=== PATIENT | female | born 1960 | race Caucasian/White ===

== ENCOUNTER 2017-11-11 09:48 | Emergency (ER) | payer BC ==
--- NOTE | 2017-11-11 10:16 | EDM.PDOC ---
ED HPI GENERAL MEDICAL PROBLEM - General Chief Complaint: Chest Pain Stated Complaint: chest pain Time Seen by Provider: 11/11/17 09:48 Source of Information: Reports: Patient History Limitations: Reports: No Limitations - History of Present Illness INITIAL COMMENTS - FREE TEXT/NARRATIVE: 56 years old w f with a h/o ETOH dependency, came with her SO the ED because of CP at her ant C/W with deep inspiration. No Trauma, neg H/O CAD. Last ETOH intake last night. Was never at an ETOH Tx center and is not interested currently to stop drinking. ECG showed NSR BP 157/83 Pulse 83 RR 17 Temp 36.5 pulse ox 100% on RA Onset Date: 11/11/17 Onset Time: 07:00 Duration: Hour(s): Location: Reports: Chest Quality: Reports: Burning, Dull Severity: Mild Improves with: Reports: Rest Worsens with: Reports: Movement Context: Reports: Other (ETOH last night. ) Associated Symptoms: Reports: Other (tremor/ETOH withdrawel ) - Related Data Allergies Allergy/AdvReac Type Severity Reaction Status Date / Time nitrofurantoin Allergy Swelling Verified 11/11/17 10:03 [From Macrobid] Home Meds: Home Meds Aspirin 81 mg PO DAILY 11/11/17 [History] Lisinopril 5 mg PO DAILY 11/11/17 [History] Ondansetron [Zofran ODT] 4 mg PO Q6H PRN #10 tab.dis 11/11/17 [Rx] ED ROS GENERAL - Review of Systems Review Of Systems: See Below Constitutional: Reports: No Symptoms HEENT: Reports: No Symptoms Respiratory: Reports: No Symptoms Cardiovascular: Reports: No Symptoms Endocrine: Reports: No Symptoms GI/Abdominal: Reports: Abdominal Pain (epigastric) : Reports: No Symptoms Musculoskeletal: Reports: No Symptoms Skin: Reports: No Symptoms Neurological: Reports: Other (tremor, last ETOH was last night) Psychiatric: Reports: Anxiety (ETOH withdrawel symptoms) Hematologic/Lymphatic: Reports: No Symptoms Immunologic: Reports: No Symptoms ED EXAM, GENERAL - Physical Exam Exam: See Below Exam Limited By: No Limitations General Appearance: Alert, WD/WN, Mild Distress Eye Exam: Bilateral Eye: Normal Inspection Ears: Normal External Exam Ear Exam: Bilateral Ear: Auricle Normal Nose: Normal Inspection Throat/Mouth: Normal Inspection Head: Atraumatic, Normocephalic Neck: Normal Inspection, Supple Respiratory/Chest: No Respiratory Distress, Lungs Clear, Normal Breath Sounds Cardiovascular: Normal Peripheral Pulses, Regular Rate, Rhythm, No Edema, No Gallop Peripheral Pulses: 1+: Radial (R) GI/Abdominal: Tender (epigastric) (Female) Exam: Deferred Rectal (Female) Exam: Deferred Back Exam: Normal Inspection Extremities: Normal Inspection, Normal Range of Motion, Non-Tender Neurological: Alert, Oriented, CN II-XII Intact, Normal Cognition, Normal Gait Psychiatric: Anxious (last ETOH intake last night) Skin Exam: Warm, Dry, Intact, Normal Color, No Rash Lymphatic: No Adenopathy EKG INTERPRETATION EKG Date: 11/11/17 Time: 10:15 Rhythm: NSR Rate (Beats/Min): 81 Morris: Normal P-Wave: Present QRS: Normal ST-T: Normal QT: Normal Comparison: NA - No Prior EKG Course - Vital Signs Text/Narrative:: 56 years old w f with a h/o ETOH dependency, came with her SO the ED because of CP at her ant C/W with deep inspiration. No Trauma, neg H/O CAD. Last ETOH intake last night. Was never at an ETOH Tx center and is not interested currently to stop drinking. ECG showed NSR BP 157/83 Pulse 83 RR 17 Temp 36.5 pulse ox 100% on RA PE: Ant C/W pain, epigastric pain Lab: CBC, BMP and trop neg Impression: Pleurisy, ETOH dependence. Tremor form ETOH withdrawel. Tx: Ativan, Zofran.Maalox Reexam: Improved Plan: D/C with instructions Last Recorded V/S: Last Vital Signs Temp 36.9 C 11/11/17 12:10 Pulse 75 11/11/17 12:10 Resp 15 11/11/17 12:10 BP 118/74 11/11/17 12:10 Pulse Ox 100 11/11/17 12:10 - Orders/Labs/Meds Orders: Active Orders 24 hr Category Date Time Status Chest 1V Frontal [CR] Stat Exams 11/11/17 10:23 Taken Peripheral IV Insertion Adult [OM.PC] Routine Oth 11/11/17 10:29 Ordered EKG 12 Lead [EK] Routine Ther 11/11/17 10:13 Ordered Labs: Laboratory Tests 11/11/17 11/11/1711/11/17 Range/Units 10:35 10:35 10:35 WBC 6.9 (4.5-12.0) X10-3/uL RBC 4.50 (3.23-5.20) x10(6)uL Hgb 13.6 (11.5-15.5) g/dL Hct 40.2 (30.0-51.3) % MCV 89.4 (80-96) fL MCH 30.3 (27.7-33.6) pg MCHC 33.9 (32.2-35.4) g/dL RDW 12.4 (11.5-15.5) % Plt Count 344 (125-369) X10(3)uL MPV 7.3 L (7.4-10.4) fL Neut % (Auto) 53.6 (46-82) % Lymph % (Auto) 32.8 (13-37) % [place] % (Auto) 10.0 (4-12) % Eos % (Auto) 2 (1.0-5.0) % Baso % (Auto) 2 (0-2) % Neut # (Auto) 3.8 (1.6-8.3) # Lymph # (Auto) 2.2 (0.6-5.0) # [place] # (Auto) 0.7 (0.0-1.3) # Eos # (Auto) 0.1 (0.0-0.8) # Baso # (Auto) 0.1 (0.0-0.2) # Sodium 139 (135-145) mmol/L Potassium 4.0 (3.5-5.3) mmol/L Chloride 101 (100-110) mmol/L Carbon Dioxide 24 (21-32) mmol/L BUN 11 (7-18) mg/dL Creatinine 0.7 (0.55-1.02) mg/dL Est Cr Clr Drug Dosing 64.46 mL/min Estimated GFR (MDRD) > 60 (>60) BUN/Creatinine Ratio 15.7 (9-20) Glucose 99 (80-116) mg/dL Calcium 9.6 (8.6-10.2) mg/dL Troponin I < 0.017 L (<0.017-0.056) ng/mL Urine Color (YELLOW) Urine Appearance (CLEAR) Urine pH (5.0-6.5) Ur Specific [place] (1.010-1.025) Urine Protein (NEGATIVE) mg/dL Urine Glucose (UA) (NEGATIVE) mg/dL Urine Ketones (NEGATIVE) mg/dL Urine Occult Blood (NEGATIVE) Urine Nitrite (NEGATIVE) Urine Bilirubin (NEGATIVE) Urine Urobilinogen (NEGATIVE) mg/dL Ur Leukocyte Esterase (NEGATIVE) Urine WBC (0) Ur Squamous Epith Cells (NS,R,O) Urine Bacteria (NS) Ethyl Alcohol < 0.03 (<0.03) % 11/11/17 Range/Units 11:45 WBC (4.5-12.0) X10-3/uL RBC (3.23-5.20) x10(6)uL Hgb (11.5-15.5) g/dL Hct (30.0-51.3) % MCV (80-96) fL MCH (27.7-33.6) pg MCHC (32.2-35.4) g/dL RDW (11.5-15.5) % Plt Count (125-369) X10(3)uL MPV (7.4-10.4) fL Neut % (Auto) (46-82) % Lymph % (Auto) (13-37) % [place] % (Auto) (4-12) % Eos % (Auto) (1.0-5.0) % Baso % (Auto) (0-2) % Neut # (Auto) (1.6-8.3) # Lymph # (Auto) (0.6-5.0) # [place] # (Auto) (0.0-1.3) # Eos # (Auto) (0.0-0.8) # Baso # (Auto) (0.0-0.2) # Sodium (135-145) mmol/L Potassium (3.5-5.3) mmol/L Chloride (100-110) mmol/L Carbon Dioxide (21-32) mmol/L BUN (7-18) mg/dL Creatinine (0.55-1.02) mg/dL Est Cr Clr Drug Dosing mL/min Estimated GFR (MDRD) (>60) BUN/Creatinine Ratio (9-20) Glucose (80-116) mg/dL Calcium (8.6-10.2) mg/dL Troponin I (<0.017-0.056) ng/mL Urine Color Yellow (YELLOW) Urine Appearance Clear (CLEAR) Urine pH 8.0 H (5.0-6.5) Ur Specific [place] 1.015 (1.010-1.025) Urine Protein Negative (NEGATIVE) mg/dL Urine Glucose (UA) Normal (NEGATIVE) mg/dL Urine Ketones Negative (NEGATIVE) mg/dL Urine Occult Blood Negative (NEGATIVE) Urine Nitrite Negative (NEGATIVE) Urine Bilirubin Negative (NEGATIVE) Urine Urobilinogen Normal (NEGATIVE) mg/dL Ur Leukocyte Esterase Negative (NEGATIVE) Urine WBC 0-5 (0) Ur Squamous Epith Cells Occasional (NS,R,O) Urine Bacteria Few H (NS) Ethyl Alcohol (<0.03) % Meds: Medications Discontinued Medications Generic Name Dose Route Start Last Admin Trade Name Freq PRN Reason Stop Dose Admin Al Hydroxide/Mg Hydroxide 30 ml 11/11/17 10:24 11/11/17 11:27 Mag-Al Susp PO 11/11/17 10:25 30 ml ONETIME STA Administration Lorazepam 0.5 mg 11/11/17 10:26 11/11/17 11:16 Ativan IVPUSH 11/11/17 10:27 0.5 mg ONETIME ONE Administration Ondansetron HCl 8 mg 11/11/17 10:23 11/11/17 11:23 Zofran IVPUSH 11/11/17 10:24 8 mg ONETIME ONE Administration Sodium Chloride 10 ml 11/11/17 10:29 11/11/17 11:15 Saline Flush FLUSH 10 ml ASDIRECTED PRN Administration Keep Vein Open Departure - Departure Time of Disposition: 11:39 Disposition: Home, Self-Care 01 Condition: Good Clinical Impression: Gastritis Qualifiers: Gastritis type: unspecified gastritis Chronicity: acute Gastritis bleeding: without bleeding Qualified Code(s): K29.00 - Acute gastritis without bleeding Sprain of chest wall Qualifiers: Encounter type: initial encounter Qualified Code(s): S23.8XXA - Sprain of other specified parts of thorax, initial encounter EtOH dependence Qualifiers: Substance use status: unspecified alcohol-induced disorder Qualified Code(s): F10.29 - Alcohol dependence with unspecified alcohol-induced disorder Prescriptions: Ondansetron [Zofran ODT] 4 mg PO Q6H PRN #10 tab.dis PRN Reason: Nausea Instructions: Gastritis, Adult, [id number], Delirium Tremens, [id number], Chest Wall Pain, [id number] Referrals: Leigh Carballo MD [Primary Care Provider] - Forms: ED Department Discharge Additional Instructions: Please f/u with your PMD next week for ETOH treatment options. Please take Zofran for nausea and Maalox for stomach acidity. Please came back if your symptoms get worse acutely. - My Orders Last 24 Hours: My Active Orders 11/11/17 10:13 EKG 12 Lead [EK] Routine 11/11/17 10:23 Chest 1V Frontal [CR] Stat 11/11/17 10:29 Peripheral IV Insertion Adult [OM.PC] Routine - Assessment/Plan Last 24 Hours: My Active Orders 11/11/17 10:13 EKG 12 Lead [EK] Routine 11/11/17 10:23 Chest 1V Frontal [CR] Stat 11/11/17 10:29 Peripheral IV Insertion Adult [OM.PC] Routine
[2017-11-11] MEDS ORDERED: Ondansetron 4 MG/2 ML SDV IVPUSH ONE (10:23)
[2017-11-11] MEDS ORDERED: Aluminum Hydroxide/Magnesium Hydroxide Susp 30 ML Cup PO STA (10:24)
[2017-11-11] MEDS ORDERED: LORazepam 2 MG/ML MDV IVPUSH ONE (10:26)
[2017-11-11] MEDS ORDERED: Sodium Chloride 0.9% 10 ML Syringe FLUSH PRN (10:29)
--- NOTE | 2017-11-12 11:29 | CR ---
INDICATION: Chest pain. CHEST: An AP upright portable view of the chest 11/11/2017, revealed the heart to be normal in size and shape. The aorta is calcified mildly in the arch area. Overlying EKG leads are noted. Findings suggesting COPD are noted, without a definite active infiltrate or effusion. No free air is noted under the hemidiaphragm leaves. IMPRESSION: 1. No acute process. 2. ASD aorta. 3. Probable COPD - correlate clinically. MTDD
== END 2017-11-11 12:10 | disposition home or self-care (01) ==
LOC: FB.ED 09:48
DX: S23.8XXA Sprain of other specified parts of thorax, initial encounter (principal); R09.1 Pleurisy; K29.00 Acute gastritis without bleeding; F10.239 Alcohol dependence with withdrawal, unspecified; R25.1 Tremor, unspecified; Z88.1 Allergy status to other antibiotic agents; Z79.82 Long term (current) use of aspirin; X58.XXXA Exposure to other specified factors, initial encounter
CPT/HCPCS: 36415; 71010; 80048; 81001; 84484; 85025; 93005; 96374; 96375; 99285; A9270; G0480; J2060; J2405; J7050